=== PATIENT | male | born 1995 | race Caucasian/White ===

== ENCOUNTER 2020-05-11 18:11 | Emergency (ER) | payer BC ==
[2020-05-11] MEDS ORDERED: HYDROcodone/APAP 5-325MG 1 EACH TAB PO STA (19:09)
--- NOTE | 2020-05-11 20:03 | XR ---
EXAMINATION TYPE: XR knee complete LT DATE OF EXAM: 05/11/2020 COMPARISON: NONE HISTORY: Pain TECHNIQUE: 3 views FINDINGS: I see no fracture nor dislocation. Joint spaces are normal. There is no evidence of knee xavier int effusion. IMPRESSION: Negative left knee exam.
--- NOTE | 2020-05-11 20:05 | XR ---
EXAMINATION TYPE: XR elbow complete LT DATE OF EXAM: 05/11/2020 COMPARISON: NONE HISTORY: Pain TECHNIQUE: 5 views FINDINGS: There is elbow joint effusion with posterior fat pad sign. There is intra-articular 15 x 10 mm chip fracture of the lateral aspect of the radial head. There is no dislocation. Proximal ulna is intact. Distal humerus is intact. IMPRESSION: Intra-articular radial head large chip fracture. Elbow joint effusion.
--- NOTE | 2020-05-11 20:35 | ED ---
Fall HPI - General Chief Complaint: Fall Stated Complaint: Elbow injury Time Seen by Provider: 05/11/20 18:25 Source: patient Mode of arrival: ambulatory - History of Present Illness Initial Comments: 25-year-old male no past mental history presents emergency room and after he sustained a fall. He states that he was rollerblading, he was attempting to grind against a rail when he lost his balance and fell onto his left elbow and left knee. States he had good range of motion but 20 minutes later he began having a lot of pain in his elbow. Did not take any medications for symptoms. He is right-hand dominant. Reports 2 previous radial head fracture on the right for which she saw an orthopedic doctor out of [place]. Denies hitting his head. No loss consciousness. Also skinned his left knee. Denies any difficulties with ambulation. No numbness, tingling in his hands or feet. Denies any neck or back pain. No other alleviating, precipitating or modifying factors - Related Data Previous Rx's Medication Instructions Recorded Hydrocodone/Acetaminophen [Nokomis 1 tab PO Q6HR PRN #12 tab 05/11/20 5-325] Allergies Allergy/AdvReac Type Severity Reaction Status Date / Time No Known Allergies Allergy Verified 05/11/20 18:24 Review of Systems ROS Statement: Those systems with pertinent positive or pertinent negative responses have been documented in the HPI. ROS Other: All systems not noted in ROS Statement are negative. Past Medical History Past Medical History: No Reported History History of Any Multi-Drug Resistant Organisms: None Reported Past Surgical History: No Surgical Hx Reported Past Psychological History: No Psychological Hx Reported Smoking Status: Never smoker Past Alcohol Use History: Occasional Past Drug Use History: None Reported General Exam Limitations: no limitations Head exam: Present: atraumatic, normocephalic, normal inspection Extremities exam: Present: normal capillary refill, joint swelling (left elbow. limited ROM due to pain. Wrist extension intact. ), other (abrasion left elbow, right palm, left knee. Mild tenderness to palpation of left knee. No joint effusion. Compartments are soft. 5/5 muscle strength b/l le. joint effusion left elbow with tenderness to palpation. No shoulder or wrist pain. 2+ radial and ulnar pulses b/l. Intact sensation) Neurological exam: Present: alert, oriented X3, CN II-XII intact Psychiatric exam: Present: normal affect, normal mood Skin exam: Present: warm, dry, intact, normal color. Absent: rash Course Vital Signs 05/11/20 05/11/20 18:24 21:03 Temperature 98.3 F 98.4 F Pulse Rate 73 71 Respiratory 18 19 Rate Blood Pressure 118/83 136/74 O2 Sat by Pulse 99 96 Oximetry Procedures - Orthopedic Splinting/Casting Injury #1 Upper Extremity Injury Location: long arm, elbow Upper Extremity Immobilizer: sling/shoulder immobilizer, posterior splint, synthetic pre-padded splint Medical Decision Making - Medical Decision Making Upon arrival the patient is placed into room 19. A thorough history and physical exam was performed. Patient is neurovascularly intact. He is sent for x-ray of his left knee and left elbow. Left knee is x-ray for any acute fracture or effusion. Left elbow demonstrates a intra-articular radial head fracture. There is an associated joint effusion. Patient is notified of this information. He would like to follow up with his orthopedic doctor and try. He is given copies of his x-rays on CD. The patient is placed in a posterior long arm splints. Patient is on sling. He did receive 2 Nokomis while was in the emergency department. Perception was sent to the pharmacy for additional Nokomis. Side effect profile was discussed. He is to follow-up for possible surgical repair. Return to the emergency department for any new or worsening symptoms. Patient was then discharged home in stable condition Disposition Clinical Impression: Fall, Radial head fracture, closed Disposition: HOME SELF-CARE Condition: Stable Instructions (If sedation given, give patient instructions): Elbow Fracture (ED) Additional Instructions: Please follow-up with the family protection specialist. You may need surgery. Return to the emergency room for any new or worsening symptoms Prescriptions: Hydrocodone/Acetaminophen [Nokomis 5-325] 1 tab PO Q6HR PRN #12 tab PRN Reason: Pain Is patient prescribed a controlled substance at d/c from ED?: Yes When asked, does pt state using other controlled substances?: No If prescribed controlled substance>3 days was MAPS reviewed?: Prescribed <3 Days If opioid is for acute pain is fill amount 7 days or less?: Yes If Rx opioid, was Start Talking consent form obtained?: Yes Referrals: None,Stated [Primary Care Provider] - 1-2 days Gato Walsh DO [Doctor of Osteopathic Medicine] - 1-2 days Time of Disposition: 20:35
[2020-05-11] MEDS ORDERED: HYDROcodone/APAP 7.5-325MG 1 EACH TAB PO ONE (20:56)
[2020-05-11 21:03] VITALS: BP 136/74; PULSE 71; RESP 19; TEMP 98.4
== END 2020-05-11 21:09 | disposition home or self-care (01) ==
LOC: EC 18:11
DX: S52.122A Displaced fracture of head of left radius, initial encounter for closed fracture (principal); M25.562 Pain in left knee; V00.121A Fall from non-in-line roller-skates, initial encounter; Y93.51 Activity, roller skating (inline) and skateboarding; Y92.89 Other specified places as the place of occurrence of the external cause
CPT/HCPCS: 29105; 99283